=== PATIENT | male | born 1960 | race Caucasian/White ===

== ENCOUNTER 2019-09-02 06:28 | Emergency (ER) | payer OTHER ==
[~2019-09-02] VITALS: Ht 172.7 cm; Wt 75.0 kg
[2019-09-02 07:11] VITALS: BP 151/89
[2019-09-02] MEDS ORDERED: ChlordiazePOXIDE HCL 25 MG CAPSULE PO ONE (07:45)
== END 2019-09-02 07:54 | disposition home or self-care (01) ==
LOC: EMS 06:28
DX: F10.229 Alcohol dependence with intoxication, unspecified (principal)